=== PATIENT | female | born 1960 | race Caucasian/White ===

== ENCOUNTER 2016-09-05 20:47 | Emergency (ER) | payer BC ==
[2016-09-05 21:07] VITALS: BP 151/83
--- NOTE | 2016-09-05 21:21 | EDM.PDOC ---
ED HPI GENERAL MEDICAL PROBLEM - General Chief Complaint: Genitourinary Problem Stated Complaint: HAD CATH REMOVED AND HASN'T GONE TO BATHROOM Time Seen by Provider: 09/05/16 21:21 - History of Present Illness INITIAL COMMENTS - FREE TEXT/NARRATIVE: 55-year-old female presents to the emergency room with complaints of not voiding. Patient had her Fulton removed around 1:00 this afternoon. The Fulton was placed for gastric bypass surgery. She was discharged from the hospital on Thursday. Since the Fulton was removed the patient's had 700-800 mL by mouth intake. She is concerned as she's had problems voiding in the past. She does not have the sensation of needing to void. She has not had any other symptoms no fevers or chills. She was bladder scanned and her bladder volume is 208-238 mL. - Related Data Allergies Allergy/AdvReac Type Severity Reaction Status Date / Time Sulfa (Sulfonamide Allergy Stomach Verified 09/05/16 21:07 Antibiotics) Ache Home Meds: Home Meds Escitalopram [Lexapro] 10 mg PO ASDIRECTED 09/05/16 [History] Hydrocodone/Acetaminophen [Hydrocodon-Acetaminophen 5-325] 1 each PO ASDIRECTED PRN 09/05/16 [History] Levothyroxine [Synthroid] 100 mcg PO ACBREAKFAST 09/05/16 [History] Ondansetron [Zofran ODT] 4 mg PO Q6H PRN 09/05/16 [History] Pantoprazole Sodium [Protonix] 40 mg PO DAILY 09/05/16 [History] buPROPion [Wellbutrin XL] 300 mg PO DAILY 09/05/16 [History] Past Medical History Gastrointestinal History: Reports: GERD Genitourinary History: Reports: Other (See Below) Other Genitourinary History: urinary retention after surgical procedures Psychiatric History: Reports: Depression Endocrine/Metabolic History: Reports: Hypothyroidism - Past Surgical History GI Surgical History: Reports: Appendectomy, Bariatric Procedure, Cholecystectomy Female Surgical History: Reports: Other (See Below) Other Female Surgeries/Procedures: post menopausal Social & Family History - Family History Family Medical History: Noncontributory - Tobacco Use Smoking Status *Q: Never Smoker - Caffeine Use Caffeine Use: Reports: None - Recreational Drug Use Recreational Drug Use: No ED ROS GENERAL - Review of Systems Review Of Systems: See Below Constitutional: Reports: No Symptoms Respiratory: Reports: No Symptoms Cardiovascular: Reports: No Symptoms GI/Abdominal: Reports: No Symptoms : Reports: Other (She has had no symptoms but has not had the sensation that she needed to void since the catheters been removed) ED EXAM, RENAL/ - Physical Exam Exam: See Below Exam Limited By: No Limitations General Appearance: Alert, No Apparent Distress Respiratory/Chest: No Respiratory Distress, Lungs Clear, Normal Breath Sounds Cardiovascular: Normal Peripheral Pulses, Regular Rate, Rhythm, No Edema GI/Abdominal: Normal Bowel Sounds, Soft, Non-Tender, Other. No: Guarding, Rigid , Rebound, Abnormal Bowel Sounds (No excessive tenderness postop changes noted) Course - Vital Signs Last Recorded V/S: Last Vital Signs Temp 36.6 C 09/05/16 21:01 Pulse 86 09/05/16 21:01 Resp 18 09/05/16 21:01 BP 151/83 H 09/05/16 21:01 Pulse Ox 94 L 09/05/16 21:01 - Re-Assessments/Exams Free Text/Narrative Re-Assessment/Exam: 09/05/16 21:45 The patient has not had the sensation to void yet she does not have full bladder we have several options at this point preferable is drinking fluids here until she feels like she needs to void in demonstrating the ability to void normally. We also offered home treatment doing the same thing however they [place] out. Another option would be IV fluids until she needed to void with observation of her bladder volumes. They elected to drink fluids however shortly after this her and her left the emergency department. Putting the Fulton in at this point would be a poor option as she has not demonstrated the inability to go. And this is associated with complications. Departure - Departure Time of Disposition: 21:47 Disposition: Eloped 07 Clinical Impression: Difficulty in voiding - Discharge Information Forms: ED Department Discharge
== END 2016-09-05 21:44 | disposition left against medical advice (07) ==
LOC: JD.ED 20:47
DX: R39.198 Other difficulties with micturition (principal); K21.9 Gastro-esophageal reflux disease without esophagitis; F32.9 Major depressive disorder, single episode, unspecified; E03.9 Hypothyroidism, unspecified; Z88.2 Allergy status to sulfonamides; Z79.899 Other long term (current) drug therapy; Z90.49 Acquired absence of other specified parts of digestive tract; Z98.84 Bariatric surgery status
CPT/HCPCS: 51798; 99282; 99283-25

== ENCOUNTER 2016-12-26 06:47 | Day surgery (SDC) | payer BC ==
[~2016-12-26 06:47] MED LIST: Lactated Ringers 1,000 ML IV SCH; Lidocaine 1%/Sod Bicarbonate in NS 8.4% 1 ML Syringe PRN; Sodium Chloride 0.9% 10 ML Syringe FLUSH PRN
[2016-12-26] MEDS ORDERED: Dexamethasone 4 MG/ML 5 ML MDV ONE (07:04)
[2016-12-26] MEDS ORDERED: Lidocaine 1% 4 ML ONE (07:04)
[2016-12-26] MEDS ORDERED: fentaNYL 250 MCG/5 ML SDV ONE (07:04)
[2016-12-26] MEDS ORDERED: Ondansetron 4 MG/2 ML SDV ONE (07:04)
[2016-12-26] MEDS ORDERED: Rocuronium 50 MG/5 ML Vial ONE (07:04)
[2016-12-26] MEDS ORDERED: Midazolam 1 MG/ML 2 ML SDV ONE (07:05)
[2016-12-26] MEDS ORDERED: Propofol 200 MG/20 ML SDV ONE (07:05)
--- NOTE | 2016-12-26 07:14 | PCM.PREANE ---
Preanesthetic Assessment - Anesthesia/Transfusion/Family Hx Anesthesia History: Prior Anesthesia Reaction (Urinary retention) Family History of Anesthesia Reaction: No Transfusion History: No Prior Transfusion(s) Intubation History: Unknown - Review of Systems General: No Symptoms Pulmonary: No Symptoms Cardiovascular: No Symptoms Gastrointestinal: No Symptoms, Abdominal Pain Neurological: No Symptoms Other: Reports: None, Depression, Anxiety - Physical Assessment NPO Status Date: 12/25/16 NPO Status Time: 21:00 Pulse: 72 O2 Sat by Pulse Oximetry: 93 Respiratory Rate: 16 Blood Pressure: 119/81 Temperature: 98.8 F ASA Class: 2 Mental Status: Alert & Oriented x3 Airway Class: Mallampati = 2 Dentition: Reports: Normal Dentition ROM/Head Extension: Full Lungs: Clear to Auscultation Cardiovascular: Regular Rate, Regular Rhythm - Allergies Allergies/Adverse Reactions: Allergies Allergy/AdvReac Type Severity Reaction Status Date / Time Sulfa (Sulfonamide AdvReac Abdominal Verified 12/25/16 15:32 Antibiotics) Pain - Blood Blood Available: No - Acknowledgements Anesthesia Type Planned: General Anesthesia Pt an Appropriate Candidate for the Planned Anesthesia: Yes Alternatives and Risks of Anesthesia Discussed w Pt/Guardian: Yes Pt/Guardian Understands and Agrees with Anesthesia Plan: Yes PreAnesthesia Questionnaire HEENT History: Reports: None Cardiovascular History: Reports: None Respiratory History: Reports: None Genitourinary History: Reports: Other (See Below) Other Genitourinary History: hyperplasia, enuresis CAFETERIA AIDE History: Reports: Other (See Below) Other OB/BYN History: post menopausal bleeding Musculoskeletal History: Reports: Other (See Below) Other Musculoskeletal History: right ankle fracture, T2-T3 fracture Neurological History: Reports: None Psychiatric History: Reports: Anxiety, Depression Endocrine/Metabolic History: Reports: Hypothyroidism Hematologic History: Reports: None Immunologic History: Reports: None Oncologic (Cancer) History: Reports: None - Past Surgical History Head Surgeries/Procedures: Reports: None HEENT Surgical History: Reports: None Cardiovascular Surgical History: Reports: None Respiratory Surgical History: Reports: None GI Surgical History: Reports: Appendectomy, Cholecystectomy, Colonoscopy, Other (See Below) Other GI Surgeries/Procedures: lpa band, gastric resection Female Surgical History: Reports: Other (See Below) Other Female Surgeries/Procedures: bladder surgery for sling Endocrine Surgical History: Reports: None Neurological Surgical History: Reports: None Oncologic Surgical History: Reports: None Dermatological Surgical History: Reports: None - SUBSTANCE USE Smoking Status *Q: Never Smoker Recreational Drug Use History: No - HOME MEDS Home Medications: Home Meds Escitalopram Oxalate [Escitalopram Oxalate] 10 mg PO Q48H 12/25/16 [History] Escitalopram Oxalate [Escitalopram Oxalate] 20 mg PO Q48H 12/25/16 [History] Hydrocodone/Acetaminophen [Hydrocodon-Acetamin 7.5-325/15] 7.5 ml PO Q6H PRN 08/06 [History] Levothyroxine [Synthroid] 100 mcg PO DAILY 12/25/16 [History] Ondansetron [Zofran ODT] 4 mg PO Q8H PRN 12/25/16 [History] Pantoprazole Sodium [Pantoprazole Sodium] 40 mg PO Q48H 12/25/16 [History] buPROPion HCl [Wellbutrin SR] 150 mg PO BID 12/25/16 [History] - CURRENT (IN HOUSE) MEDS Current Meds: Current Medications Lactated Ringer's (Ringers, Lactated) 1,000 mls @ 125 mls/hr IV ASDIRECTED ALFREDITO Stop: 12/26/16 23:00 Lidocaine/Sodium Bicarbonate (Buffered Lidocaine 1% In Ns 8.4%) 0.25 ml .XX ONETIME PRN PRN Reason: Prior to IV Start Stop: 12/26/16 18:00 Sodium Chloride (Saline Flush) 10 ml FLUSH ASDIRECTED PRN PRN Reason: Keep Vein Open Stop: 12/26/16 18:00 Discontinued Medications Dexamethasone (Dexamethasone) Confirm Administered Dose 20 mg .ROUTE .STK-MED ONE Stop: 12/26/16 07:05 Fentanyl (Sublimaze) Confirm Administered Dose 250 mcg .ROUTE .STK-MED ONE Stop: 12/26/16 07:05 Lidocaine HCl (Xylocaine-Mpf 1%) Confirm Administered Dose 4 mls @ as directed .ROUTE .STK-MED ONE Stop: 12/26/16 07:05 Midazolam HCl (Versed 1 Mg/Ml) Confirm Administered Dose 2 mg .ROUTE .STK-MED ONE Stop: 12/26/16 07:06 Ondansetron HCl (Zofran) Confirm Administered Dose 4 mg .ROUTE .STK-MED ONE Stop: 12/26/16 07:05 Propofol (Diprivan 20 Ml) Confirm Administered Dose 200 mg .ROUTE .STK-MED ONE Stop: 12/26/16 07:06 Rocuronium [place] (Zemuron) Confirm Administered Dose 50 mg .ROUTE .STK-MED ONE Stop: 12/26/16 07:05
[2016-12-26] MEDS ORDERED: ceFAZolin 1 GM Vial ONE (07:45)
[2016-12-26] MEDS: Bupivacaine 0.5% 30 ML SDV ONE ×3 (08:19→08:37)
[2016-12-26] MEDS ORDERED: Neostigmine Methylsulfate 1 MG/ML 5 ML Syringe ONE (09:18)
[2016-12-26] MEDS ORDERED: Ketorolac 30 MG/ML SDV ONE (09:35)
[2016-12-26] MEDS ORDERED: HYDROmorphone 1 MG/ML Syringe ONE (09:59)
--- NOTE | 2016-12-26 10:11 | PCM.OPNOTE ---
- General Post-Op/Procedure Note Date of Surgery/Procedure: 12/26/16 Operative Procedure(s): Laparoscopic assisted vaginal hysterectomy, bilateral salpingectomy, right oophorectomy Findings: Intraabdominal examination shows a large amount of scar tissue in the right upper abdomen at sites of previous surgeries. Left upper abdomen and pelvis fairly clear of scar tissue. Uterus wtih fundal fibroid noted. Normal appearance otherwise the of the uterus, fallopian tubes, and ovaries. Pre Op Diagnosis: Simple hyperplasia without atypia Post-Op Diagnosis: Same Anesthesia Technique: General ET Tube Primary Surgeon: Vi Forbes Secondary Surgeon: Thuy Doe Anesthesia Provider: Branden Marte Pathology: Cervix, uterus, bilateral fallopian tubes, and right ovary sent to pathology Fluid Replacement, Intraop: 1,600 Output, Urine Amount: 425 EBL in mLs: 125 Complications: None Condition: Good Free Text/Narrative:: The risks, benefits, indications, potential complications, and alternatives were explained to the patient and informed consent obtained. The patient was taken to the Operating Room where general anesthesia was induced without complication. The patient was placed in dorsal lithotomy with Dash Stirrups and an exam under anesthesia revealed the findings detailed above. The patient was then prepped and draped in the usual sterile fashion. A sterile bivalve speculum was placed into the vagina and the anterior lip of the cervix was grasped with a single tooth tenaculum and a Vickie uterine manipulator was placed to allow uterine manipulation throughout the procedure. The speculum and single tooth tenaculum were removed from the vagina. A Fulton catheter was placed in sterile fashion. Attention was then turned to the patients abdomen where a Veress needle was carefully introduced into the peritoneal cavity while tenting the abdominal wall. Intraperitoneal placement was confirmed by free flow of saline into the abdomen from a syringe open to gravity and with a low intraabdominal pressure with insufflation of C02 gas on low flow. The gas was increased to high flow and a pneumoperitoneum was obtained with C02 gas to a pressure of 15 mm Hg. A 5 mm skin incision was made in a vertical fashion in the umbilical fold and a 5 mm blunt trocar was inserted into the abdomen with direct visualization of the laparoscope through the clear view trocar lens. 5 mm skin incisions were made in both the left and right lower quadrants approximately 10 cm lateral and 3 cm inferior to the umbilicus. 5 mm blunt trocars were inserted into the abdomen under direct visualization with care to avoid the abdominal wall vasculature. A blunt probe and grasper were inserted through the accessory ports and a survey of the abdomen revealed the findings detailed above. The right adnexa was elevated with a blunt grasper. The right ureter was directly visualized and noted to be below the planned dissection area. The Ligasure was used to grasp, elevate, cauterize and transect the right infundibulopelvic ligament. The round ligament on the right was then elevated, cauterized, and transected with the Ligasure. Hemostasis was noted. The ligasure was used to sequentially cauterize and transect from the ovary to this site in the round ligament, freeing it from the pelvic wall. Next, the vesicouterine peritoneum was elevated gently with a blunt grasper and a combination of the ligasure and blunt dissection were used dissect the vesicouterine peritoneum to make a bladder flap. Additional small bites along the right side of the uterus were made with the Ligasure to skeletonize the uterine artery. Hemostasis was noted. On the left side of the patient's abdomen there was a somewhat dilated and immobile infundibulopelvic ligament and so decision made to leave left ovary in situ. The left fallopian tube was elevated by the fimbriated end. Next, the Ligasure was used to grasp, cauterize, and transect from the fimbriated end of the fallopian tube toward the uterus to the level of the round ligament. Next, the round ligament was elevated, cauterized , and transected and a couple of additional small bites on the left side of the uterus were made to help skeletonize the left uterine artery. Hemostasis as noted. The CO2 gas was turned off and the laparoscope was removed. Attention was then turned to the vaginal portion of the procedure. A short weighted speculum was placed in the vagina, and the cervix was grasped with a double-toothed tenaculum. The cervix was injected circumferentially with 10 mL of 0.25% Marcaine. The cervix was then circumferentially incised with a scalpel. A Raytec was used to bluntly dissect the cervix circumferentially until an avascular plane was obtained. The posterior cul-de-sac was entered sharply without difficulty. The short weighted speculum was replaced by the long weighted speculum. The uterosacral ligaments were grasped on either side with the Ligasure, cauterized, and transected. Hemostasis was assured. The bladder was dissected off the pubovesical cervical fascia anteriorly with a sponge and blunt dissection. The anteiror cul-de-sac was then entered sharply without difficulty. The cardinal ligaments were then serially clamped on both sides with the Ligasure, cauterized, and transected. The uterine arteries were then clamped with the Ligasure, cauterized, and transected. Hemostasis was then noted. The fundus and adnexa were confirmed to be free of any further peritoneal attachments and then were pulled out through the vagina. The posterior peritoneum was then closed with a running, locked 0 vicryl suture. The vaginal cuff was next closed with a 0-Vicryl in a running locked fashion. Hemostasis was noted. Attention was then again turned to the abdomen. All members of the surgical team changed gloves. The laparoscope was again inserted and the abdomen was again insufflated with CO2. The pedicles were again visualized. Bebo seal was placed along the vaginal cuff. Hemostasis was confirmed. The patient was taken out of Trendelenberg position. The accessory trocars were removed under direct visualization. The pneumoperitoneum was allowed to escape. The umbilical trocar was removed and lastly the camera was removed from the abdomen under direct visualization to confirm no herniation into the port site. All skin incisions were re-approximated with 4-0 Monocryl and sealed with Dermabond. Hemostasis was noted. A total of 10 cc of 0.25% Marcaine was injected into the subcutaneous tissues surrounding the skin incisions for local anesthesia. All sponge, lap, needle, and instrument counts were correct x 2. The patient tolerated the procedure well and there were no complications.
--- NOTE | 2016-12-26 10:26 | PCM.POSTAN ---
POST ANESTHESIA ASSESSMENT - MENTAL STATUS Mental Status: Alert, Oriented - VITAL SIGNS Pulse Rate: 95 SaO2: 96 Resp Rate: 11 Blood Pressure: 137/81 Temperature: 99 F - RESPIRATORY Respiratory Status: Respiratory Rate WNL, Airway Patent, O2 Saturation Stable - CARDIOVASCULAR CV Status: Pulse Rate WNL, Blood Pressure Stable - GASTROINTESTINAL GI Status: No Symptoms - PAIN Pain Score: 0 - POST OP HYDRATION Hydration Status: Adequate & Stable
[2016-12-26] MEDS ORDERED: HYDROmorphone 0.5 MG/0.5 ML Syringe IVPUSH PRN (10:27)
[2016-12-26] MEDS ORDERED: fentaNYL 100 MCG/2 ML SDV IVPUSH PRN (10:27)
[2016-12-26] MEDS ORDERED: Sodium Chloride 0.9% 10 ML Syringe FLUSH PRN (11:56)
[2016-12-26] MEDS ORDERED: Ondansetron 4 MG/2 ML SDV IVPUSH PRN (11:56)
[2016-12-26] MEDS ORDERED: Acetaminophen/oxyCODONE 325-5 MG Tab PO PRN (11:56)
[2016-12-26] MEDS: Ketorolac 30 MG/ML SDV IVPUSH SCH ×2 (16:36→21:12)
[2016-12-26] MEDS ORDERED: BUPROPION HCL 150 MG PO SCH (21:00)
[2016-12-26] MEDS ORDERED: Citalopram 20 MG Tab PO STA (23:01)
[2016-12-27] MEDS: Ketorolac 30 MG/ML SDV IVPUSH SCH (05:43)
[2016-12-27] MEDS ORDERED: Levothyroxine 100 MCG Tab PO SCH (06:00)
--- NOTE | 2016-12-27 07:20 | PCM.SURGPN ---
- General Info Date of Service: 12/27/16 POD#: 1 Functional Status: Reports: Pain Controlled, Tolerating Diet, Ambulating - Review of Systems General: Reports: No Symptoms Pulmonary: Reports: No Symptoms Cardiovascular: Reports: No Symptoms Gastrointestinal: Reports: No Symptoms Genitourinary: Reports: Other (Patient had attempted to have catheter removed last night with voiding trial, but failed. Was planned to have another voiding trial this am, but would prefer to defer) Musculoskeletal: Reports: No Symptoms Neurological: Reports: No Symptoms - Patient Data Vitals - Most Recent: Last Vital Signs Temp 37.0 C 12/26/16 20:00 Pulse 58 L 12/26/16 20:00 Resp 18 12/26/16 20:00 BP 125/73 12/26/16 20:00 Pulse Ox 94 L 12/26/16 20:00 Weight - Most Recent: 103.918 kg I&O - Last 24 Hours: Intake & Output 12/26/16 12/27/16 12/27/16 22:59 06:59 14:59 Intake Total 1700 450 Output Total 1625 1300 Balance 75 -850 Lab Results Last 24 Hrs: Laboratory Results - last 24 hr 12/26/16 12/26/16 12/26/16 Range/Units 07:33 07:33 07:33 WBC 7.15 (3.98-10.04) K/mm3 RBC 5.04 (3.98-5.22) M/mm3 Hgb 14.7 (11.2-15.7) gm/L Hct 44.0 (34.1-44.9) % MCV 87.3 (79.4-94.8) fl MCH 29.2 (25.6-32.2) pg MCHC 33.4 (32.2-35.5) g/dl RDW Std Deviation 45.8 (36.4-46.3) fL Plt Count 283 (182-369) K/mm3 MPV 10.3 (9.4-12.3) fl Neut % (Auto) 64.3 (34.0-71.1) % Lymph % (Auto) 24.3 (19.3-51.7) % [place] % (Auto) 9.2 (4.7-12.5) % Eos % (Auto) 2.0 (0.7-5.8) Baso % (Auto) 0.1 (0.1-1.2) % Neut # (Auto) 4.59 (1.56-6.13) K/mm3 Lymph # (Auto) 1.74 (1.18-3.74) K/mm3 [place] # (Auto) 0.66 H (0.24-0.36) K/mm3 Eos # (Auto) 0.14 (0.04-0.36) K/mm3 Baso # (Auto) 0.01 (0.01-0.08) K/mm3 Sodium 141 (136-145) mEq/L Potassium 3.4 L (3.5-5.1) mEq/L Chloride 106 (98-107) mEq/L Carbon Dioxide 24 (21-32) mEq/L Anion Gap 14.4 (5-15) BUN 14 (7-18) mg/dL Creatinine 0.9 (0.55-1.02) mg/dL Est Cr Clr Drug Dosing 72.07 mL/min Estimated GFR (MDRD) > 60 (>60) mL/min BUN/Creatinine Ratio 15.6 (14-18) Glucose 95 (74-106) mg/dL Calcium 8.8 (8.5-10.1) mg/dL Blood Type O POSITIVE Gel Antibody Screen Negative Med Orders - Current: Current Medications Citalopram Hydrobromide (Celexa) 20 mg PO Q48H [facility] Citalopram Hydrobromide (Celexa) 10 mg PO Q48H [facility] Levothyroxine Sodium (Synthroid) 100 mcg PO ACBREAKFAST [facility] Last Admin: 12/27/16 05:42 Dose: 100 mcg Ondansetron HCl (Zofran) 4 mg IVPUSH Q4H PRN PRN Reason: Nausea/Vomiting Oxycodone/Acetaminophen (Percocet 325-5 Mg) 2 tab PO Q4H PRN PRN Reason: Pain (moderate 4-6) Bupropion Hcl 150 Mg (Sr Own Med) 0 each PO BID [facility] Last Admin: 12/26/16 21:12 Dose: 1 each Sodium Chloride (Saline Flush) 10 ml FLUSH ASDIRECTED PRN PRN Reason: Keep Vein Open Discontinued Medications Bupivacaine HCl (Marcaine 0.5%) Confirm Administered Dose 30 ml .ROUTE .STK-MED ONE Stop: 12/26/16 07:35 Last Admin: 12/26/16 08:25 Dose: 7 ml Cefazolin Sodium (Ancef) Confirm Administered Dose 2 gm .ROUTE .STK-MED ONE Stop: 12/26/16 07:46 Citalopram Hydrobromide (Celexa) 20 mg PO Q48H [facility] Citalopram Hydrobromide (Celexa) 20 mg PO ONETIME STA Stop: 12/26/16 23:02 Last Admin: 12/26/16 23:09 Dose: 20 mg Dexamethasone (Dexamethasone) Confirm Administered Dose 20 mg .ROUTE .STK-MED ONE Stop: 12/26/16 07:05 Fentanyl (Sublimaze) Confirm Administered Dose 250 mcg .ROUTE .STK-MED ONE Stop: 12/26/16 07:05 Fentanyl (Sublimaze) 50 mcg IVPUSH Q5M PRN PRN Reason: Pain Stop: 12/26/16 18:00 Glycopyrrolate () Confirm Administered Dose 1 mg .ROUTE .STK-MED ONE Stop: 12/26/16 08:51 Hydromorphone HCl (Dilaudid) Confirm Administered Dose 1 mg .ROUTE .STK-MED ONE Stop: 12/26/16 10:00 Hydromorphone HCl (Dilaudid) 0.5 mg IVPUSH Q15M PRN PRN Reason: severe pain Stop: 12/26/16 18:00 Last Admin: 12/26/16 10:35 Dose: 0.5 mg Lactated Ringer's (Ringers, Lactated) 1,000 mls @ 125 mls/hr IV ASDIRECTED [facility] Stop: 12/26/16 23:00 Last Admin: 12/26/16 07:10 Dose: 125 mls/hr Lidocaine HCl (Xylocaine-Mpf 1%) Confirm Administered Dose 4 mls @ as directed .ROUTE .STK-MED ONE Stop: 12/26/16 07:05 Ketorolac Tromethamine (Toradol) Confirm Administered Dose 30 mg .ROUTE .STK- MED ONE Stop: 12/26/16 09:36 Ketorolac Tromethamine (Toradol) 30 mg IVPUSH Q6H [facility] Stop: 12/27/16 04:01 Last Admin: 12/27/16 05:43 Dose: 30 mg Lidocaine/Sodium Bicarbonate (Buffered Lidocaine 1% In Ns 8.4%) 0.25 ml .XX ONETIME PRN PRN Reason: Prior to IV Start Stop: 12/26/16 18:00 Last Admin: 12/26/16 07:10 Dose: 0.25 ml Midazolam HCl (Versed 1 Mg/Ml) Confirm Administered Dose 2 mg .ROUTE .STK-MED ONE Stop: 12/26/16 07:06 Neostigmine Methylsulfate (Neostigmine) Confirm Administered Dose 5 mg .ROUTE .STK-MED ONE Stop: 12/26/16 09:19 Ondansetron HCl (Zofran) Confirm Administered Dose 4 mg .ROUTE .STK-MED ONE Stop: 12/26/16 07:05 Propofol (Diprivan 20 Ml) Confirm Administered Dose 200 mg .ROUTE .STK-MED ONE Stop: 12/26/16 07:06 Rocuronium [place] (Zemuron) Confirm Administered Dose 50 mg .ROUTE .STK-MED ONE Stop: 12/26/16 07:05 Sodium Chloride (Saline Flush) 10 ml FLUSH ASDIRECTED PRN PRN Reason: Keep Vein Open Stop: 12/26/16 18:00 - Exam Wound/Incisions: Healing Well, No Drainage Lungs: Clear to Auscultation, Normal Respiratory Effort Cardiovascular: Regular Rate, Regular Rhythm GI/Abdominal Exam: Normal Bowel Sounds, Soft, Non-Tender, No Distention Extremities: Normal Inspection Skin: Warm, Dry, Intact - Problem List & Annotations (1) Simple endometrial hyperplasia without atypia SNOMED Code(s): 998512581 Code(s): N85.01 - BENIGN ENDOMETRIAL HYPERPLASIA Status: Acute (2) S/P laparoscopic assisted vaginal hysterectomy (LAVH) SNOMED Code(s): 876496174, 929142467 Code(s): Z90.710 - ACQUIRED ABSENCE OF BOTH CERVIX AND UTERUS Status: Acute - Problem List Review Problem List Initiated/Reviewed/Updated: Yes - My Orders Last 24 Hours: Active Orders 24 hr Category Date Time Status Admission Status [Patient Status] [ADT] Routine ADT 12/26/16 22:37 Active Antiembolic Devices [RC] PER UNIT ROUTINE Care 12/26/16 11:58 Active Communication Order [RC] ROUTINE Care 12/26/16 13:30 Active Insert June Catheter [Insert Urinary Catheter] [OM.PC] Care 12/26/16 19:00 Ordered Q24H Insert June Catheter [Insert Urinary Catheter] [OM.PC] Care 12/26/16 08:19 Ordered Stat Intake and Output [RC] Q4HR Care 12/26/16 11:57 Active Notify Provider Intake and Out [RC] ASDIRECTED Care 12/26/16 11:57 Active Notify Provider [RC] ASDIRECTED Care 12/26/16 10:26 Inactive Oxygen Therapy [RC] ASDIRECTED Care 12/26/16 10:26 Inactive Pulse Oximetry [RC] ASDIRECTED Care 12/26/16 10:26 Inactive Ready for Discharge [RC] PER UNIT ROUTINE Care 12/27/16 07:20 Ordered Up ad Melissa [RC] PER UNIT ROUTINE Care 12/26/16 11:57 Active Urinary Catheter Assessment [RC] ASDIRECTED Care 12/26/16 08:35 Inactive Urinary Catheter Assessment [RC] ASDIRECTED Care 12/26/16 21:07 Active Vital Signs [RC] Q15M Care 12/26/16 10:27 Inactive Vital Signs [RC] Q4HR Care 12/26/16 11:56 Active Regular Diet [DIET] Diet 12/26/16 Lunch Active Acetaminophen/oxyCODONE [Percocet 325-5 MG] Med 12/26/16 11:56 Active 2 tab PO Q4H PRN Citalopram [Celexa] Med 12/27/16 21:00 Active 10 mg PO Q48H Citalopram [Celexa] Med 12/28/16 21:00 Active 20 mg PO Q48H Levothyroxine [Synthroid] Med 12/27/16 06:00 Active 100 mcg PO ACBREAKFAST Ondansetron [Zofran] Med 12/26/16 11:56 Active 4 mg IVPUSH Q4H PRN Patient's Own Medication [Ptom] Med 12/26/16 21:00 Active 0 each PO BID Sodium Chloride 0.9% [Saline Flush] Med 12/26/16 11:56 Active 10 ml FLUSH ASDIRECTED PRN Saline Lock Insert [OM.PC] Routine Oth 12/26/16 11:56 Ordered Sequential Compression Device [OM.PC] Per Unit Routine Oth 12/26/16 11:57 Ordered Resuscitation Status Routine Resus Stat 12/26/16 11:56 Ordered Medication Orders Citalopram Hydrobromide (Celexa) 20 mg PO Q48H [facility] Citalopram Hydrobromide (Celexa) 10 mg PO Q48H [facility] Levothyroxine Sodium (Synthroid) 100 mcg PO ACBREAKFAST [facility] Last Admin: 12/27/16 05:42 Dose: 100 mcg Ondansetron HCl (Zofran) 4 mg IVPUSH Q4H PRN PRN Reason: Nausea/Vomiting Oxycodone/Acetaminophen (Percocet 325-5 Mg) 2 tab PO Q4H PRN PRN Reason: Pain (moderate 4-6) Bupropion Hcl 150 Mg (Sr Own Med) 0 each PO BID [facility] Last Admin: 12/26/16 21:12 Dose: 1 each Sodium Chloride (Saline Flush) 10 ml FLUSH ASDIRECTED PRN PRN Reason: Keep Vein Open - Assessment Assessment (Free Text/Narrative):: POD#1 from [facility], bilateral salpingectomy, and right oophorectomy for simple hyperplasia without atypia - Plan Plan (Free Text/Narrative):: * Pain controlled * Tolerating diet * Has had issues with urinary retention after prior surgeries. Attempt made at voiding trial last night, but failed. Had planned on another attempt this am, but jensen declined due to concern over discomfort. Would prefer to have voiding trial done in clinic. Will discharge with june in place. Will have clinic contact her to arrange follow up
--- NOTE | 2016-12-27 07:21 | PCM.DCSUM1 ---
Discharge Summary - Discharge Data Discharge Date: 12/27/16 Discharge Disposition: Home, Self-Care 01 Condition: Good - Discharge Diagnosis/Problem(s) (1) Simple endometrial hyperplasia without atypia SNOMED Code(s): 248718084 ICD Code: N85.01 - BENIGN ENDOMETRIAL HYPERPLASIA Status: Acute - Patient Summary/Data Operative Procedure(s) Performed: Laparoscopic assisted vaginal hysterectomy, bilateral salpingectomy, right oophorectomy Complications: None Consults: None Recommended Follow-up Testing/Procedures: Follow up in 2-3 days in clinic for voiding trial / catheter removal Hospital Course: Patient admitted for planned surgical intervention. This was uncomplicated. Post-operatively she did have voiding dysfunction and needed her catheter reinserted. She did state this happens after most of her surgeries. Was offered a second attempt at a voiding trial, but declined and preferred outpatient follow up and attempt. She was discharged home on POD#1 - Patient Instructions Diet: Regular Diet as Tolerated Activity: No Lifting Over 10 Pounds Activity, Other: Pelvic Rest for 6 weeks Driving: Do Not Drive (While taking narcotics) Showering/Bathing: May Shower, No Tub Bathing/Swimming Wound/Incision Care: Keep Operative Site/Wound Site Clean and Dry Notify Provider of: Fever, Increased Pain, Swelling and Redness, Drainage, Nausea and/or Vomiting - Discharge Plan Prescriptions/Med Rec: Acetaminophen/oxyCODONE [Percocet 325-5 MG] 2 tab PO Q4H PRN #20 tablet PRN Reason: Pain Home Medications: Home Meds Escitalopram Oxalate 10 mg PO Q48H 12/25/16 [History] Escitalopram Oxalate 20 mg PO Q48H 12/25/16 [History] Levothyroxine [Synthroid] 100 mcg PO DAILY 12/25/16 [History] Pantoprazole Sodium 40 mg PO Q48H 12/25/16 [History] buPROPion HCl [Wellbutrin SR] 150 mg PO BID 12/25/16 [History] Acetaminophen/oxyCODONE [Percocet 325-5 MG] 2 tab PO Q4H PRN #20 tablet [Rx] Referrals: Vi Forbes MD [Physician] - (5-6 weeks for post-op check. Please call clinic to schedule follow-up.) - Discharge Summary/Plan Comment DC Time >30 min.: No - Patient Data Vitals - Most Recent: Last Vital Signs Temp 37.0 C 12/26/16 20:00 Pulse 58 L 12/26/16 20:00 Resp 18 12/26/16 20:00 BP 125/73 12/26/16 20:00 Pulse Ox 94 L 12/26/16 20:00 Weight - Most Recent: 103.918 kg I&O - Last 24 hours: Intake & Output 12/26/16 12/27/16 12/27/16 22:59 06:59 14:59 Intake Total 1700 450 Output Total 1625 1300 Balance 75 -850 Lab Results - Last 24 hrs: Laboratory Results - last 24 hr 12/26/16 12/26/16 12/26/16 Range/Units 07:33 07:33 07:33 WBC 7.15 (3.98-10.04) K/mm3 RBC 5.04 (3.98-5.22) M/mm3 Hgb 14.7 (11.2-15.7) gm/L Hct 44.0 (34.1-44.9) % MCV 87.3 (79.4-94.8) fl MCH 29.2 (25.6-32.2) pg MCHC 33.4 (32.2-35.5) g/dl RDW Std Deviation 45.8 (36.4-46.3) fL Plt Count 283 (182-369) K/mm3 MPV 10.3 (9.4-12.3) fl Neut % (Auto) 64.3 (34.0-71.1) % Lymph % (Auto) 24.3 (19.3-51.7) % [place] % (Auto) 9.2 (4.7-12.5) % Eos % (Auto) 2.0 (0.7-5.8) Baso % (Auto) 0.1 (0.1-1.2) % Neut # (Auto) 4.59 (1.56-6.13) K/mm3 Lymph # (Auto) 1.74 (1.18-3.74) K/mm3 [place] # (Auto) 0.66 H (0.24-0.36) K/mm3 Eos # (Auto) 0.14 (0.04-0.36) K/mm3 Baso # (Auto) 0.01 (0.01-0.08) K/mm3 Sodium 141 (136-145) mEq/L Potassium 3.4 L (3.5-5.1) mEq/L Chloride 106 (98-107) mEq/L Carbon Dioxide 24 (21-32) mEq/L Anion Gap 14.4 (5-15) BUN 14 (7-18) mg/dL Creatinine 0.9 (0.55-1.02) mg/dL Est Cr Clr Drug Dosing 72.07 mL/min Estimated GFR (MDRD) > 60 (>60) mL/min BUN/Creatinine Ratio 15.6 (14-18) Glucose 95 (74-106) mg/dL Calcium 8.8 (8.5-10.1) mg/dL Blood Type O POSITIVE Gel Antibody Screen Negative Med Orders - Current: Current Medications Citalopram Hydrobromide (Celexa) 20 mg PO Q48H [facility] Citalopram Hydrobromide (Celexa) 10 mg PO Q48H [facility] Levothyroxine Sodium (Synthroid) 100 mcg PO ACBREAKFAST [facility] Last Admin: 12/27/16 05:42 Dose: 100 mcg Ondansetron HCl (Zofran) 4 mg IVPUSH Q4H PRN PRN Reason: Nausea/Vomiting Oxycodone/Acetaminophen (Percocet 325-5 Mg) 2 tab PO Q4H PRN PRN Reason: Pain (moderate 4-6) Bupropion Hcl 150 Mg (Sr Own Med) 0 each PO BID [facility] Last Admin: 12/26/16 21:12 Dose: 1 each Sodium Chloride (Saline Flush) 10 ml FLUSH ASDIRECTED PRN PRN Reason: Keep Vein Open Discontinued Medications Bupivacaine HCl (Marcaine 0.5%) Confirm Administered Dose 30 ml .ROUTE .STK-MED ONE Stop: 12/26/16 07:35 Last Admin: 12/26/16 08:25 Dose: 7 ml Cefazolin Sodium (Ancef) Confirm Administered Dose 2 gm .ROUTE .STK-MED ONE Stop: 12/26/16 07:46 Citalopram Hydrobromide (Celexa) 20 mg PO Q48H [facility] Citalopram Hydrobromide (Celexa) 20 mg PO ONETIME STA Stop: 12/26/16 23:02 Last Admin: 12/26/16 23:09 Dose: 20 mg Dexamethasone (Dexamethasone) Confirm Administered Dose 20 mg .ROUTE .STK-MED ONE Stop: 12/26/16 07:05 Fentanyl (Sublimaze) Confirm Administered Dose 250 mcg .ROUTE .STK-MED ONE Stop: 12/26/16 07:05 Fentanyl (Sublimaze) 50 mcg IVPUSH Q5M PRN PRN Reason: Pain Stop: 12/26/16 18:00 Glycopyrrolate () Confirm Administered Dose 1 mg .ROUTE .STK-MED ONE Stop: 12/26/16 08:51 Hydromorphone HCl (Dilaudid) Confirm Administered Dose 1 mg .ROUTE .STK-MED ONE Stop: 12/26/16 10:00 Hydromorphone HCl (Dilaudid) 0.5 mg IVPUSH Q15M PRN PRN Reason: severe pain Stop: 12/26/16 18:00 Last Admin: 12/26/16 10:35 Dose: 0.5 mg Lactated Ringer's (Ringers, Lactated) 1,000 mls @ 125 mls/hr IV ASDIRECTED [facility] Stop: 12/26/16 23:00 Last Admin: 12/26/16 07:10 Dose: 125 mls/hr Lidocaine HCl (Xylocaine-Mpf 1%) Confirm Administered Dose 4 mls @ as directed .ROUTE .STK-MED ONE Stop: 12/26/16 07:05 Ketorolac Tromethamine (Toradol) Confirm Administered Dose 30 mg .ROUTE .STK- MED ONE Stop: 12/26/16 09:36 Ketorolac Tromethamine (Toradol) 30 mg IVPUSH Q6H [facility] Stop: 12/27/16 04:01 Last Admin: 12/27/16 05:43 Dose: 30 mg Lidocaine/Sodium Bicarbonate (Buffered Lidocaine 1% In Ns 8.4%) 0.25 ml .XX ONETIME PRN PRN Reason: Prior to IV Start Stop: 12/26/16 18:00 Last Admin: 12/26/16 07:10 Dose: 0.25 ml Midazolam HCl (Versed 1 Mg/Ml) Confirm Administered Dose 2 mg .ROUTE .STK-MED ONE Stop: 12/26/16 07:06 Neostigmine Methylsulfate (Neostigmine) Confirm Administered Dose 5 mg .ROUTE .STK-MED ONE Stop: 12/26/16 09:19 Ondansetron HCl (Zofran) Confirm Administered Dose 4 mg .ROUTE .STK-MED ONE Stop: 12/26/16 07:05 Propofol (Diprivan 20 Ml) Confirm Administered Dose 200 mg .ROUTE .STK-MED ONE Stop: 12/26/16 07:06 Rocuronium [place] (Zemuron) Confirm Administered Dose 50 mg .ROUTE .STK-MED ONE Stop: 12/26/16 07:05 Sodium Chloride (Saline Flush) 10 ml FLUSH ASDIRECTED PRN PRN Reason: Keep Vein Open Stop: 12/26/16 18:00 *Q Meaningful Use (DIS) - VTE *Q VTE Criteria *Q: - Stroke *Q Stroke Criteria *Q: - AMI *Q AMI Criteria *Q:
[2016-12-27 08:36] VITALS: BP 139/73
[2016-12-27] MEDS ORDERED: Citalopram 20 MG Tab PO SCH (21:00)
[2016-12-27] MEDS ORDERED: Citalopram 10 MG Tab PO SCH (21:00)
[2016-12-28] MEDS ORDERED: Citalopram 20 MG Tab PO SCH (21:00)
== END 2016-12-27 09:32 | disposition home or self-care (01) ==
LOC: JD.SDS 06:47 → UNDOADMOB 22:37 → JD.MS 22:37 → MERGE 22:37 → JD.SDS 12-27 09:32 → UNDODISOB 12-27 09:32 → JD.SDS 01-06 09:32
PROVIDERS: ATTEND Obstetrics & Gynecology
DX: N72 Inflammatory disease of cervix uteri (principal); N80.0 Endometriosis of uterus; D25.1 Intramural leiomyoma of uterus; D25.2 Subserosal leiomyoma of uterus; N73.6 Female pelvic peritoneal adhesions (postinfective); N83.311 Acquired atrophy of right ovary; N83.8 Other noninflammatory disorders of ovary, fallopian tube and broad ligament; F41.9 Anxiety disorder, unspecified; F32.9 Major depressive disorder, single episode, unspecified; E03.9 Hypothyroidism, unspecified; Z79.899 Other long term (current) drug therapy; Z98.84 Bariatric surgery status; Z90.49 Acquired absence of other specified parts of digestive tract; Z98.890 Other specified postprocedural states; Z88.2 Allergy status to sulfonamides
CPT/HCPCS: 36415; 58552; 80048; 85025; 86850; 86900; 86901; A9270; J0690; J1100; J1170; J1885; J2250; J2405; J2710; J3010; J7120; 00840; 51702; J2704

== ENCOUNTER 2021-01-09 10:08 | Emergency (ER) | payer OTHER ==
[2021-01-09 10:40] VITALS: BP 144/89; PULSE 66
--- NOTE | 2021-01-09 11:34 | CR ---
Chest: Frontal view of the chest was obtained. Comparison: Prior chest x-ray of 06/21/11. Heart size and mediastinum are normal. Lungs are clear with no acute parenchymal change. Bony structures show nothing acute. Impression: 1. Nothing acute is seen on frontal chest x-ray. Diagnostic code #1
--- NOTE | 2021-01-09 12:10 | EDM.PDOC ---
ED HPI GENERAL MEDICAL PROBLEM - General Chief Complaint: Cardiovascular Problem Stated Complaint: SOB Time Seen by Provider: 01/09/21 11:09 Source of Information: Reports: Patient, Family, Old Records History Limitations: Reports: No Limitations - History of Present Illness INITIAL COMMENTS - FREE TEXT/NARRATIVE: The patient presents for shortness of breath and chest pain. The patient said the shortness of breath started on Thursday. She had just woke up. She may have a slight cough. She has no fever, chills, abdominal pain, nausea or vomiting. She did not have chest pain until a couple days ago. She developed some chest pressure. That is gone now. She saw Lianne Xiao and had a complete work up done that included labs, EKG, and a CT angio of her chest. The only thing that was abnormal was her D-dimer was elevated at 1.06. The CT angio of her chest showed no PE and no abnormalities. She was COVID negative yesterday. She has no history of heart problems or lung problems such as asthma or COPD. Onset: Gradual Duration: Day(s): (4) Location: Reports: Chest Quality: Reports: Pressure Severity: Mild Improves with: Reports: None Worsens with: Reports: None Associated Symptoms: Reports: Chest Pain, Cough, Shortness of Breath. Denies: Fever/Chills, Headaches, Nausea/Vomiting Chest Pain Score (Numeric/FACES): 5 - Related Data Allergies Allergy/AdvReac Type Severity Reaction Status Date / Time Sulfa (Sulfonamide Allergy Stomach Verified 01/09/21 10:35 Antibiotics) Ache Home Meds: Home Meds Escitalopram [Lexapro] 10 mg PO ASDIRECTED 09/05/16 [History] Hydrocodone/Acetaminophen [Hydrocodon-Acetaminophen 5-325] 1 each PO ASDIRECTED PRN 09/05/16 [History] Levothyroxine [Synthroid] 100 mcg PO ACBREAKFAST 09/05/16 [History] Ondansetron [Zofran ODT] 4 mg PO Q6H PRN 09/05/16 [History] Pantoprazole Sodium [Protonix] 40 mg PO DAILY 09/05/16 [History] buPROPion [Wellbutrin XL] 300 mg PO DAILY 09/05/16 [History] Escitalopram Oxalate 10 mg PO Q48H 12/25/16 [History] Escitalopram Oxalate 20 mg PO Q48H 12/25/16 [History] Levothyroxine [Synthroid] 100 mcg PO DAILY 12/25/16 [History] Pantoprazole Sodium 40 mg PO Q48H 12/25/16 [History] buPROPion HCL [Wellbutrin SR] 150 mg PO BID 12/25/16 [History] Acetaminophen/oxyCODONE [Percocet 325-5 MG] 2 tab PO Q4H PRN #20 tablet 12/26/16 [Rx] Past Medical History HEENT History: Reports: Hard of Hearing, Impaired Vision, Other (See Below) Other HEENT History: WEARS GLASSES FOR READING AND BILATERAL HEARING AIDS Cardiovascular History: Reports: None Respiratory History: Reports: None Gastrointestinal History: Reports: GERD, None Genitourinary History: Reports: Other (See Below) Other Genitourinary History: hyperplasia, enuresis, 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 [employer] ANALYST History: Reports: Other (See Below), 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 Musculoskeletal History: Reports: Other (See Below) Other Musculoskeletal History: right ankle fracture, T2-T3 fracture Neurological History: Reports: None Psychiatric History: Reports: Anxiety, Depression Endocrine/Metabolic History: Reports: Hypothyroidism, Obesity/BMI 30+ Hematologic History: Reports: None Immunologic History: Reports: None Oncologic (Cancer) History: Reports: None Dermatologic History: Reports: None - Infectious Disease History Infectious Disease History: Reports: Chicken Pox, None, Shingles - Past Surgical History Head Surgeries/Procedures: Reports: None HEENT Surgical History: Reports: Other (See Below) Other HEENT Surgeries/Procedures: LASIK SURGERY Cardiovascular Surgical History: Reports: None Respiratory Surgical History: Reports: None GI Surgical History: Reports: Appendectomy, Bariatric Procedure, Cholecystectomy, Colonoscopy, Other (See Below) Other GI Surgeries/Procedures: lap band, gastric resection Female Surgical History: Reports: Hysterectomy, Other (See Below) Other Female Surgeries/Procedures: bladder surgery for sling Endocrine Surgical History: Reports: None Neurological Surgical History: Reports: None Musculoskeletal Surgical History: Reports: None Oncologic Surgical History: Reports: None Dermatological Surgical History: Reports: None Social & Family History - Family History Family Medical History: No Pertinent Family History - Caffeine Use Caffeine Use: Reports: None, Other Other Caffeine Use: RARE ED ROS GENERAL - Review of Systems Review Of Systems: See Below Constitutional: Reports: No Symptoms HEENT: Reports: No Symptoms Respiratory: Reports: Shortness of Breath, Cough Cardiovascular: Reports: Chest Pain Endocrine: Reports: No Symptoms GI/Abdominal: Reports: No Symptoms : Reports: No Symptoms Musculoskeletal: Reports: No Symptoms ED EXAM, GENERAL - Physical Exam Exam: See Below Exam Limited By: No Limitations General Appearance: Alert, No Apparent Distress Ears: Normal External Exam Nose: Normal Inspection Head: Atraumatic, Normocephalic Neck: Normal Inspection Respiratory/Chest: No Respiratory Distress, Lungs Clear, Normal Breath Sounds Cardiovascular: Regular Rate, Rhythm, No Edema, No Murmur GI/Abdominal: Soft, Non-Tender, No Organomegaly, No Mass Back Exam: Normal Inspection #1 Interpretation EKG Date: 01/09/21 Time: 10:39 Rhythm: NSR Rate (Beats/Min): 61 [place]: Normal P-Wave: Present QRS: Normal ST-T: Normal QT: Normal Course - Vital Signs Last Recorded V/S: Last Vital Signs Temp 98.5 F 01/09/21 10:35 Pulse 66 01/09/21 10:35 Resp 18 01/09/21 10:35 BP 144/89 H 01/09/21 10:35 Pulse Ox 96 01/09/21 10:35 - Orders/Labs/Meds Orders: Active Orders 24 hr Category Date Time Status Isolation [COMM] Routine Oth 01/09/21 12:09 Ordered Labs: Laboratory Tests 01/09/21 01/09/21 01/09/21 Range/Units 11:15 11:15 11:15 WBC 7.60 (3.98-10.04) K/mm3 RBC 5.02 (3.98-5.22) M/mm3 Hgb 13.1 D (11.2-15.7) gm/dl Hct 40.8 (34.1-44.9) % MCV 81.3 D (79.4-94.8) fl MCH 26.1 (25.6-32.2) pg MCHC 32.1 L (32.2-35.5) g/dl RDW Std Deviation 39.9 (36.4-46.3) fL Plt Count 291 (182-369) K/mm3 MPV 10.3 (9.4-12.3) fl Neut % (Auto) 62.8 (34.0-71.1) % Lymph % (Auto) 27.4 (19.3-51.7) % Trigg % (Auto) 8.9 (4.7-12.5) % Eos % (Auto) 0.5 L (0.7-5.8) Baso % (Auto) 0.3 (0.1-1.2) % Neut # (Auto) 4.77 (1.56-6.13) K/mm3 Lymph # (Auto) 2.08 (1.18-3.74) K/mm3 Trigg # (Auto) 0.68 H (0.24-0.36) K/mm3 Eos # (Auto) 0.04 (0.04-0.36) K/mm3 Baso # (Auto) 0.02 (0.01-0.08) K/mm3 PT 10.6 (9.7-12.0) SECONDS INR 0.95 D-Dimer, Quantitative (0.19-0.50) mg/L Sodium (136-145) mEq/L Potassium (3.5-5.1) mEq/L Chloride (98-107) mEq/L Carbon Dioxide (21-32) mEq/L Anion Gap (5-15) BUN (7-18) mg/dL Creatinine (0.55-1.02) mg/dL Est Cr Clr Drug Dosing Estimated GFR (MDRD) (>60) mL/min BUN/Creatinine Ratio (14-18) Glucose (70-99) mg/dL Calcium (8.5-10.1) mg/dL Total Bilirubin (0.2-1.0) mg/dL AST (15-37) U/L ALT (14-59) U/L Alkaline Phosphatase (46-116) U/L CK-MB (CK-2) 0.6 (0-3.6) ng/ml Troponin I < 0.017 (0.00-0.056) ng/mL NT-Pro-B Natriuret Pep (0-125) pg/mL Total Protein (6.4-8.2) g/dl Albumin (3.4-5.0) g/dl Globulin gm/dL Albumin/Globulin Ratio (1-2) SARS-CoV-2 RNA ([place]) (NEGATIVE) 01/09/21 01/09/21 01/09/21 Range/Units 11:15 11:15 11:15 WBC (3.98-10.04) K/mm3 RBC (3.98-5.22) M/mm3 Hgb (11.2-15.7) gm/dl Hct (34.1-44.9) % MCV (79.4-94.8) fl MCH (25.6-32.2) pg MCHC (32.2-35.5) g/dl RDW Std Deviation (36.4-46.3) fL Plt Count (182-369) K/mm3 MPV (9.4-12.3) fl Neut % (Auto) (34.0-71.1) % Lymph % (Auto) (19.3-51.7) % Trigg % (Auto) (4.7-12.5) % Eos % (Auto) (0.7-5.8) Baso % (Auto) (0.1-1.2) % Neut # (Auto) (1.56-6.13) K/mm3 Lymph # (Auto) (1.18-3.74) K/mm3 Trigg # (Auto) (0.24-0.36) K/mm3 Eos # (Auto) (0.04-0.36) K/mm3 Baso # (Auto) (0.01-0.08) K/mm3 PT (9.7-12.0) SECONDS INR D-Dimer, Quantitative 0.86 H (0.19-0.50) mg/L Sodium 141 (136-145) mEq/L Potassium 3.4 L (3.5-5.1) mEq/L Chloride 106 (98-107) mEq/L Carbon Dioxide 25 (21-32) mEq/L Anion Gap 13.4 (5-15) BUN 13 (7-18) mg/dL Creatinine 0.9 (0.55-1.02) mg/dL Est Cr Clr Drug Dosing TNP Estimated GFR (MDRD) > 60 (>60) mL/min BUN/Creatinine Ratio 14.4 (14-18) Glucose 82 (70-99) mg/dL Calcium 8.7 (8.5-10.1) mg/dL Total Bilirubin 0.4 (0.2-1.0) mg/dL AST 21 (15-37) U/L ALT 32 (14-59) U/L Alkaline Phosphatase 158 H (46-116) U/L CK-MB (CK-2) (0-3.6) ng/ml Troponin I (0.00-0.056) ng/mL NT-Pro-B Natriuret Pep 215 H (0-125) pg/mL Total Protein 7.1 (6.4-8.2) g/dl Albumin 3.6 (3.4-5.0) g/dl Globulin 3.5 gm/dL Albumin/Globulin Ratio 1.0 (1-2) SARS-CoV-2 RNA ([place]) (NEGATIVE) 01/09/21 Range/Units 12:12 WBC (3.98-10.04) K/mm3 RBC (3.98-5.22) M/mm3 Hgb (11.2-15.7) gm/dl Hct (34.1-44.9) % MCV (79.4-94.8) fl MCH (25.6-32.2) pg MCHC (32.2-35.5) g/dl RDW Std Deviation (36.4-46.3) fL Plt Count (182-369) K/mm3 MPV (9.4-12.3) fl Neut % (Auto) (34.0-71.1) % Lymph % (Auto) (19.3-51.7) % Trigg % (Auto) (4.7-12.5) % Eos % (Auto) (0.7-5.8) Baso % (Auto) (0.1-1.2) % Neut # (Auto) (1.56-6.13) K/mm3 Lymph # (Auto) (1.18-3.74) K/mm3 Trigg # (Auto) (0.24-0.36) K/mm3 Eos # (Auto) (0.04-0.36) K/mm3 Baso # (Auto) (0.01-0.08) K/mm3 PT (9.7-12.0) SECONDS INR D-Dimer, Quantitative (0.19-0.50) mg/L Sodium (136-145) mEq/L Potassium (3.5-5.1) mEq/L Chloride (98-107) mEq/L Carbon Dioxide (21-32) mEq/L Anion Gap (5-15) BUN (7-18) mg/dL Creatinine (0.55-1.02) mg/dL Est Cr Clr Drug Dosing Estimated GFR (MDRD) (>60) mL/min BUN/Creatinine Ratio (14-18) Glucose (70-99) mg/dL Calcium (8.5-10.1) mg/dL Total Bilirubin (0.2-1.0) mg/dL AST (15-37) U/L ALT (14-59) U/L Alkaline Phosphatase (46-116) U/L CK-MB (CK-2) (0-3.6) ng/ml Troponin I (0.00-0.056) ng/mL NT-Pro-B Natriuret Pep (0-125) pg/mL Total Protein (6.4-8.2) g/dl Albumin (3.4-5.0) g/dl Globulin gm/dL Albumin/Globulin Ratio (1-2) SARS-CoV-2 RNA ([place]) Negative (NEGATIVE) - Re-Assessments/Exams Free Text/Narrative Re-Assessment/Exam: 01/09/21 12:34 I ordered an EKG, CXR and labs. Her EKG shows a NSR with no acute changes. Her CXR shows nothing acute is seen on frontal chest x-ray. 01/09/21 13:40 Her COVID and influenza are negative. Her D-dimer is elevated but better then yesterday at 0.86. 01/09/21 13:42 I called to let her know. Departure - Departure Time of Disposition: 12:50 Disposition: Home, Self-Care 01 Condition: Good Clinical Impression: Dyspnea on exertion, Atypical chest pain Instructions: Shortness of Breath, Adult, [id number] Referrals: Carissa Xiao NP [Primary Care Provider] - 1 Week Forms: ED Department Discharge Additional Instructions: Take your medication as prescribed. Follow up with Lianne Xiao in the clinic. Please return if you are worse. I will call you with the rest of the labs. Sepsis Event Note (ED) - Evaluation Sepsis Screening Result: No Definite Risk - Focused Exam Vital Signs: Vital Signs Temp Pulse Resp BP Pulse Ox 01/09/21 10:35 98.5 F 66 18 144/89 H 96 - My Orders Last 24 Hours: My Active Orders 01/09/21 12:09 Isolation [COMM] Routine - Assessment/Plan Last 24 Hours: My Active Orders 01/09/21 12:09 Isolation [COMM] Routine
== END 2021-01-09 13:10 | disposition home or self-care (01) ==
LOC: JD.ED 10:08
DX: R07.89 Other chest pain (principal); R06.00 Dyspnea, unspecified; K21.9 Gastro-esophageal reflux disease without esophagitis; E03.9 Hypothyroidism, unspecified; E66.9 Obesity, unspecified; Z88.2 Allergy status to sulfonamides; Z79.899 Other long term (current) drug therapy; Z20.822 Contact with and (suspected) exposure to COVID-19
CPT/HCPCS: 36415; 71045; 71045-26; 80053; 82553; 83880; 84484; 85025; 85379; 85610; 87804; 93005; 99285-25; U0002

== ENCOUNTER 2021-09-19 15:35 | Observation (INO) | payer OTHER ==
[2021-09-19] MEDS ORDERED: Sodium Chloride 0.9% 10 ML Syringe FLUSH PRN (15:56)
[2021-09-19 16:40] LABS: ESTIMATED GFR 73 mL/min (>60)
[2021-09-19] MEDS ORDERED: Iopamidol 755 Mg/ML 100 ML Bottle IVPUSH ONE (17:05)
[2021-09-19] MEDS ORDERED: Sodium Chloride 0.9% 100 ML IV SCH (17:15)
[2021-09-19] MEDS ORDERED: Acetaminophen 325 MG Tab PO PRN (21:19)
[2021-09-19] MEDS ORDERED: Lactated Ringers 1,000 ML IV SCH (21:30)
[2021-09-19] MEDS ORDERED: Sodium Chloride 0.9% 1,000 ML IV SCH (22:30)
[2021-09-19] MEDS: Piperacillin/Tazobactam 4.5 GM in Sodium Chloride 0.9% 100 ML IV SCH (22:57)
[2021-09-19] MEDS ORDERED: ESCITALOPRAM 20 MG PO SCH (23:30)
[2021-09-20] MEDS ORDERED: Citalopram 20 MG Tab PO SCH (00:15)
[2021-09-20] MEDS: BUPROPION 150 MG PO SCH ×2 (00:28→09:14)
[2021-09-20] MEDS: Citalopram 20 MG Tab PO SCH ×2 (00:57→09:15)
[2021-09-20] MEDS: Piperacillin/Tazobactam 4.5 GM in Sodium Chloride 0.9% 100 ML IV SCH (05:32)
[2021-09-20] MEDS ORDERED: Potassium Chloride 20 MEQ Tab.ER PO ONE ×2 (07:01→09:00)
[2021-09-20] MEDS ORDERED: Levothyroxine 100 MCG Tab ** OWN MED PO SCH (09:00)
[2021-09-20] MEDS ORDERED: Furosemide 20 MG Tab ** OWN MED PO SCH (09:00)
[2021-09-20] MEDS ORDERED: Potassium Chloride 20 MEQ Tab.ER ONE (09:18)
[2021-09-20 12:06] VITALS: BP 119/91; PULSE 69
[2021-09-20] MEDS ORDERED: Montelukast 10 MG Tab PO SCH (21:00)
== END 2021-09-20 14:11 | disposition home or self-care (01) ==
LOC: JD.ED 15:35 → JD.MS 20:18
PROVIDERS: ADMIT Surgery; ATTEND Surgery
DX: J98.2 Interstitial emphysema (principal); Z88.2 Allergy status to sulfonamides; J45.909 Unspecified asthma, uncomplicated; K21.9 Gastro-esophageal reflux disease without esophagitis; F41.9 Anxiety disorder, unspecified; F32.A Depression, unspecified; E03.9 Hypothyroidism, unspecified; E66.9 Obesity, unspecified; Z98.890 Other specified postprocedural states; Z79.899 Other long term (current) drug therapy; Z90.49 Acquired absence of other specified parts of digestive tract
CPT/HCPCS: 36415; 71045; 71250; 71275; 80048; 80053; 81001; 83735; 83880; 84484; 85025; 85379; 86140; 87086; 87088; 87186; 93005; 96361; 96365; 96366; 99285; A9270; G0378; J2543; J3490; J7030; Q9967

== ENCOUNTER 2023-07-20 14:19 | Emergency (ER) | payer OTHER ==
[2023-07-20] MEDS: Aspirin 325 MG Tab.EC PO ONE (14:30)
[2023-07-20] MEDS: Sodium Chloride 0.9% 10 ML Syringe FLUSH PRN ×2 (14:31→15:27)
[2023-07-20 14:36] LABS: BASOPHILS PERCENT AUTO 0.3 % (0.0-1.0); EOSINOPHILS PERCENT AUTO 0.6 % (0.0-6.0); HEMATOCRIT 42.7 % (37.0-47.0); HEMOGLOBIN 14.1 gm/dl (12.0-16.0); IMMATURE GRAN ABSOLUTE AUTO 0.02 K/mm3 (0.00-0.05); IMMATURE GRAN PERCENT AUTO 0.3 % (0.0-0.4); MEAN CORPUSCULAR HEMOGLOBIN 27.5 pg (28.0-32.0); MEAN CORPUSCULAR VOLUME 83.4 fl (83.0-99.0); MEAN PLATELET VOLUME 9.9 fl (9.4-12.3); MONOCYTES ABSOLUTE AUTO 0.5 K/mm3 (0.0-0.8); MONOCYTES PERCENT AUTO 7.7 % (0.0-8.0); NEUTROPHILS PERCENT AUTO 61.1 % (41.0-71.0); PLATELET COUNT,PLT 275 K/mm3 (150-400); RED BLOOD CELL COUNT 5.12 M/mm3 (4.10-5.30); WHITE BLOOD CELL COUNT,WBC 6.53 K/mm3 (3.9-11.3)
[2023-07-20 14:53] LABS: INR 0.96; PROTHROMBIN TIME 10.3 SECONDS (9.7-12.0)
[2023-07-20 14:56] LABS: PTT,PARTIAL THROMBOPLSTIN TIME 26.8 SECONDS (21.7-31.4)
[2023-07-20 14:59] LABS: D-DIMER QUANTITATIVE 0.85 mg/L (0.19-0.50)
[2023-07-20 15:05] LABS: A/G RATIO 1.1 (1-2); ALANINE AMINOTRANSFERASE,ALT 28 U/L (14-59); ALBUMIN 3.8 g/dl (3.4-5.0); ALKALINE PHOSPHATASE 197 U/L (46-116); ANION GAP 15.3 (5-15); ASPARTATE AMNIOTRANSFERASE,AST 20 U/L (15-37); BILIRUBIN TOTAL 0.3 mg/dL (0.2-1.0); BLOOD UREA NITROGEN,BUN 18 mg/dL (7-18); BUN/CREATININE RATIO 22.5 (14-18); CALCIUM 8.9 mg/dL (8.5-10.1); CARBON DIOXIDE,CO2 25 mEq/L (21-32); CHLORIDE,CL 104 mEq/L (98-107); CREATININE 0.8 mg/dL (0.55-1.02); EST CRCL DRUG DOSING (CG) 75.22 mL/min; ESTIMATED GFR 83 mL/min (>60); GLUCOSE RANDOM 100 mg/dL (70-99); MAGNESIUM 2.2 mg/dL (1.8-2.4); POTASSIUM,K 4.3 mEq/L (3.5-5.1); PROTEIN TOTAL,TP 7.4 g/dl (6.4-8.2); SODIUM,NA 140 mEq/L (136-145)
[2023-07-20 15:06] LABS: TROPONIN I HIGH SENSITIVITY < 4 pg/mL (<=51)
[2023-07-20] MEDS: Iopamidol 755 Mg/ML 100 ML Bottle IVPUSH ONE (15:27)
[2023-07-20] MEDS: Sodium Chloride 0.9% 45 ML IV SCH (15:27)
[2023-07-20 18:07] VITALS: BP 133/83; PULSE 65
== END 2023-07-20 18:07 | disposition home or self-care (01) ==
LOC: JD.ED 14:19
DX: R07.89 Other chest pain (principal); E03.9 Hypothyroidism, unspecified; E66.9 Obesity, unspecified; I25.2 Old myocardial infarction; I50.9 Heart failure, unspecified; Z79.899 Other long term (current) drug therapy; Z88.2 Allergy status to sulfonamides
CPT/HCPCS: 36415; 71045; 71275; 80053; 83735; 83880; 84484; 85025; 85379; 85610; 85730; 93005; 99285; A9270; J3490; Q9967; 93010; 99284